=== PATIENT | female | born 1940 | race Caucasian/White ===

== ENCOUNTER → 2017-03-09 | Outpatient (CLI) | payer MEDICARE, BC | LOC: MC.RAD 14:20 | DX: Z12.31 Encounter for screening mammogram for malignant neoplasm of breast (principal) ==

== ENCOUNTER 2017-07-12 14:29 | Emergency (ER) | payer MEDICARE, BC ==
[~2017-07-12] VITALS: Ht 157.5 cm; Wt 70.5 kg
[2017-07-12 15:11] VITALS: BP 169/78; TEMP 98
[2017-07-12 15:42] LABS: BASO % 0.4 % (0.0-2.0); EOS # 0.2 (0.0-0.7); EOS % 2.5 % (0-4.0); GRAN # 3.7 (1.4-6.5); HEMATOCRIT 40.3 % (37.0-47.0); HEMOGLOBIN 13.5 g/dl (12.5-16.0); LYMPH # 2.7 (1.2-3.4); LYMPH % 38.3 % (20.0-51.0); MEAN CELL VOLUME 91 fl (80.0-100.0); MEAN CORPUSCULAR HEMOGLOBIN 31 pg (27.0-31.0); MEAN CORPUSCULAR HGB CONC 34 g/dl (33.0-37.0); MEAN PLATELET VOLUME 9.7 fl (7.4-10.4); MONO # 0.5 (0.1-0.6); MONO % 6.7 % (1.7-9.3); PLATELET COUNT 206 K/mm3 (130-400); RED BLOOD COUNT 4.43 M/mm3 (4.10-5.30); REDCELL DISTRIBUTION WIDTH-CV 13.1 % (11.5-14.5)
[2017-07-12 15:48] LABS: PROTHROMBIN TIME 12.1 SECONDS (9.7-12.8)
[2017-07-12 15:57] LABS: ALANINE AMINOTRANSFERASE 33 U/L (9-52); ALKALINE PHOSPHATASE 59 U/L (50-136); ANION GAP 9 mmol/L (7-16); AST,SGOT 26 U/L (15-37); BILIRUBIN,TOTAL 0.5 mg/dL (0.0-1.0); BLOOD UREA NITROGEN 18 mg/dL (7-17); CALCIUM 9.1 mg/dL (8.4-10.2); CARBON DIOXIDE 30 mmol/L (22-30); CHLORIDE 101 mmol/L (98-107); CREATINE KINASE 40 U/L (30-135); CREATININE, serum 1.02 mg/dL (0.52-1.25); GLUCOSE 104 mg/dL (74-106); POTASSIUM 3.8 mmol/L (3.4-5.0); SODIUM 140 mmol/L (137-145); TOTAL PROTEIN 7.3 gm/dL (6.4-8.2)
[2017-07-12] MEDS ORDERED: TENORMIN100 MG PO (15:57)
[2017-07-12 15:58] LABS: C-REACTIVE PROTEIN < 0.5 mg/dL (0.0-0.9)
[2017-07-12 16:06] LABS: TROPONIN-I < 0.012 ng/mL (0.000-0.034)
[2017-07-12 16:28] VITALS: PULSE 48
== END 2017-07-12 16:30 | disposition home or self-care (01) ==
LOC: COL.ER 14:29
PROVIDERS: Emergency Medicine
DX: M79.622 Pain in left upper arm (principal); I47.1 Supraventricular tachycardia

== ENCOUNTER → 2018-04-15 | Outpatient (CLI) | payer MEDICARE, BC ==
[~2018-04-15] MED LIST: TENORMIN100 MG PO
== END ==
LOC: MC.RAD 09:28
DX: Z12.31 Encounter for screening mammogram for malignant neoplasm of breast (principal); R92.0 Mammographic microcalcification found on diagnostic imaging of breast

== ENCOUNTER → 2018-04-16 | Outpatient (CLI) | payer MEDICARE, BC | LOC: MC.RAD 13:14 | DX: R92.0 Mammographic microcalcification found on diagnostic imaging of breast (principal) ==

== ENCOUNTER → 2019-04-24 | Outpatient (CLI) | payer MEDICARE, BC | LOC: MC.RAD 12:52 | DX: Z12.31 Encounter for screening mammogram for malignant neoplasm of breast (principal); N63.23 Unspecified lump in the left breast, lower outer quadrant ==

== ENCOUNTER → 2019-04-29 | Outpatient (CLI) | payer MEDICARE, BC | LOC: MC.RAD 08:16 | DX: N60.02 Solitary cyst of left breast (principal) ==

== ENCOUNTER → 2020-01-20 | Outpatient (CLI) | payer MEDICARE, BC | LOC: ZLAB.KSTAT 15:06 | DX: U07.1 COVID-19 (principal) ==

== ENCOUNTER → 2020-04-26 | Outpatient (CLI) | payer MEDICARE, BC | LOC: MC.RAD 14:39 | DX: Z12.31 Encounter for screening mammogram for malignant neoplasm of breast (principal) ==